=== PATIENT | female | born 1965 | race Caucasian/White ===

== ENCOUNTER 2017-05-16 06:58 | Day surgery (SDC) | payer BC ==
[2017-05-16] MEDS ORDERED: Bupivacaine 0.25% 10 ML SDV INJECT ONE (07:00)
[2017-05-16] MEDS ORDERED: ceFAZolin 2 GM in Premix Bag 1 BAG IV ONE (07:00)
[2017-05-16] MEDS ORDERED: fentaNYL 100 MCG/2 ML SDV ONE (07:24)
[2017-05-16] MEDS ORDERED: Propofol 200 MG/20 ML SDV ONE (07:24)
[2017-05-16] MEDS ORDERED: Midazolam 1 MG/ML 2 ML SDV ONE (07:24)
[2017-05-16] MEDS ORDERED: Lidocaine 2% 5 ML SDV ONE (07:24)
--- NOTE | 2017-05-16 07:27 | PCM.PREANE ---
Preanesthetic Assessment - Anesthesia/Transfusion/Family Hx Anesthesia History: Prior Anesthesia Without Reaction Family History of Anesthesia Reaction: No Transfusion History: Prior Transfusion Without Reaction - Review of Systems General: No Symptoms Pulmonary: No Symptoms Cardiovascular: No Symptoms Gastrointestinal: No Symptoms Neurological: No Symptoms Other: Reports: None - Physical Assessment NPO Status Date: 05/15/17 Height: 1.4 m Weight: 88.904 kg ASA Class: 2 Mental Status: Alert & Oriented x3 Airway Class: Mallampati = 2 Dentition: Reports: Normal Dentition ROM/Head Extension: Full Lungs: Clear to Auscultation, Normal Respiratory Effort Cardiovascular: Regular Rate, Regular Rhythm - Allergies Allergies/Adverse Reactions: Allergies Allergy/AdvReac Type Severity Reaction Status Date / Time adhesive tape Allergy Rash Verified 05/13/17 10:41 - Anesthesia Plan Pre-Op Medication Ordered: None - Acknowledgements Anesthesia Type Planned: MAC Pt an Appropriate Candidate for the Planned Anesthesia: Yes Alternatives and Risks of Anesthesia Discussed w Pt/Guardian: Yes Pt/Guardian Understands and Agrees with Anesthesia Plan: Yes PreAnesthesia Questionnaire HEENT History: Reports: Other (See Below) Other HEENT History: wears glasses Respiratory History: Reports: Sleep Apnea Genitourinary History: Reports: None Musculoskeletal History: Reports: Back Pain, Chronic, Fracture Other Musculoskeletal History: hx femur fx, hx rickets Neurological History: Reports: Concussion Psychiatric History: Reports: Anxiety, Depression Endocrine/Metabolic History: Reports: Obesity/BMI 30+, Osteopenia Hematologic History: Reports: Blood Transfusion(s) - Past Surgical History Head Surgeries/Procedures: Reports: None HEENT Surgical History: Reports: Oral Surgery, Other (See Below) Other HEENT Surgeries/Procedures: eye surgery as a child GI Surgical History: Reports: Bariatric Procedure, Cholecystectomy, Other (See Below) Other GI Surgeries/Procedures: ventral hernia repair, bariatric surgery, laparoscopy with lysis of adhesions Musculoskeletal Surgical History: Reports: Knee Replacement, Other (See Below) Other Musculoskeletal Surgeries/Procedures:: namrata knee replacement, osteotomy tib -fib, - SUBSTANCE USE Smoking Status *Q: Former Smoker Recreational Drug Use History: No - HOME MEDS Home Medications: Home Meds Escitalopram Oxalate 10 mg PO DAILY 05/13/17 [History] Hydrocodone/Acetaminophen [Hydrocodon-Acetaminoph 7.5-325] 1 tab PO ASDIRECTED PRN 05/13/17 [History] Pantoprazole Sodium 40 mg PO DAILY 05/13/17 [History] Phosphorus #1 [K-Phos Neutral Tablet] 500 mg PO ASDIRECTED 05/13/17 [History] - CURRENT (IN HOUSE) MEDS Current Meds: Current Medications Cefazolin Sodium/Dextrose 2 gm (/ Premix) 50 mls @ 100 mls/hr IV ONETIME ONE Stop: 05/16/17 07:29 Lactated Ringer's (Ringers, Lactated) 1,000 mls @ 125 mls/hr IV ASDIRECTED DAVON Last Admin: 05/16/17 07:14 Dose: 125 mls/hr Discontinued Medications Bupivacaine HCl (Sensorcaine-Mpf 0.25%) 10 ml INJECT ONETIME ONE Stop: 05/16/17 07:01
[2017-05-16] MEDS ORDERED: Ondansetron 4 MG/2 ML SDV ONE (07:31)
[2017-05-16] MEDS ORDERED: Ketorolac 30 MG/ML SDV ONE (07:31)
[2017-05-16] MEDS ORDERED: Bupivacaine 0.25% 10 ML SDV ONE (07:37)
[2017-05-16] MEDS ORDERED: Lactated Ringers 1,000 ML IV SCH (08:00)
[2017-05-16] MEDS ORDERED: fentaNYL 100 MCG/2 ML SDV IVPUSH PRN (08:45)
--- NOTE | 2017-05-16 09:03 | PCM.POSTAN ---
POST ANESTHESIA ASSESSMENT - MENTAL STATUS Mental Status: Alert, Oriented - RESPIRATORY Respiratory Status: Respiratory Rate WNL, Airway Patent, O2 Saturation Stable - CARDIOVASCULAR CV Status: Pulse Rate WNL, Blood Pressure Stable - GASTROINTESTINAL GI Status: No Symptoms - POST OP HYDRATION Hydration Status: Adequate & Stable
--- NOTE | 2017-05-16 09:04 | PCM48HPAN ---
Post Anesthesia Note - EVALUATION WITHIN 48HRS OF ANESTHETIC Vital Signs in Normal Range: Yes Patient Participated in Evaluation: Yes Respiratory Function Stable: Yes Airway Patent: Yes Cardiovascular Function Stable: Yes Hydration Status Stable: Yes Pain Control Satisfactory: Yes Nausea and Vomiting Control Satisfactory: Yes Mental Status Recovered: Yes
--- NOTE | 2017-05-19 12:37 | PCM.OPNOTE ---
- General Post-Op/Procedure Note Date of Surgery/Procedure: 05/16/17 Operative Procedure(s): right carpal tunnel release Pre Op Diagnosis: right carpal tunnel syndrome Post-Op Diagnosis: Same Anesthesia Technique: Local, MAC Primary Surgeon: Hiral Victoria Plant Superintendent: Lucille Edwards Reason Plant Superintendent Was Necessary: retraction Complications: None Condition: Good
--- NOTE | 2017-05-29 19:45 | OR ---
SURGEON: TANNER GOMEZ MD DATE OF PROCEDURE: 05/16/2017 PREOPERATIVE DIAGNOSIS: Right carpal tunnel syndrome. POSTOPERATIVE DIAGNOSIS: Right carpal tunnel syndrome. PROCEDURE PERFORMED: Right carpal tunnel release. INFORMATION CLERK [employer]: HAN Harmon. REASON INFORMATION CL[employer] WAS NECESSARY: Retraction and assistance with prepping and closure. ANESTHESIA: Local MAC. INDICATIONS: Ms. Noyola is a 51-year-old female, seen today in evaluation for right carpal tunnel syndrome. Risks and benefits of carpal tunnel release were discussed with her, and she was in agreement to proceed. Risks were including, but not limited to, bleeding, infection, damage to underlying or overlying structures, possible need for future interventions, and possible scarring. PROCEDURAL DETAILS: After informed consent was obtained and placed on the chart, the patient was brought to the operating theater and laid in the supine position. After adequate local MAC anesthetic was obtained, the area was prepped and draped, and a time-out was completed to confirm side and site. The arm was then exsanguinated, and the tourniquet was insufflated to 200 mmHg after injection of local anesthetic. Once adequately anesthetized, a 15-blade was then used to dissect through skin and subcutaneous tissues and until direct breach of the ligament. Dissection was then carried distally and proximally under direct visualization using a Littler scissors. Once completely released and release was ensured, the area was irrigated with saline. WOUND CLOSURE: The wound was closed using 5-0 nylon stitches in a horizontal mattress fashion. The wound was dressed with Xeroform fluffs and a Kerlix gauze dressing. CONDITION: The patient tolerated the procedure well. COUNT RESULTS: All counts and needles were correct at the end of the case. HEGGTHE / MODL /[id number]
== END 2017-05-16 09:40 | disposition home or self-care (01) ==
LOC: MW.SDS 06:58
PROVIDERS: ATTEND Plastic Surgery
DX: G56.01 Carpal tunnel syndrome, right upper limb (principal); G47.30 Sleep apnea, unspecified; F41.9 Anxiety disorder, unspecified; F32.9 Major depressive disorder, single episode, unspecified; E66.9 Obesity, unspecified; M85.80 Other specified disorders of bone density and structure, unspecified site; Z98.890 Other specified postprocedural states; Z91.048 Other nonmedicinal substance allergy status; Z68.30 Body mass index [BMI] 30.0-30.9, adult; Z90.49 Acquired absence of other specified parts of digestive tract; Z96.653 Presence of artificial knee joint, bilateral; Z87.891 Personal history of nicotine dependence; Z79.899 Other long term (current) drug therapy
CPT/HCPCS: 64721; J1885; J2250; J2405; J3010; J7120; 01810; J2704